=== PATIENT | female | born 1965 | race Caucasian/White ===

== ENCOUNTER 2019-08-24 08:45 | Outpatient (CLI) | payer BC, SELFPAY ==
--- NOTE | ~2019-08-24 | MR_ITS ---
EXAMINATION: MR foot LT wo con DATE: 08/24/2019 10:10 INDICATION: Posterior tibial tendinitis. TECHNIQUE: Magnetic resonance imaging (MRI) of the left ankle, mid and hindfoot was performed without intravenous contrast. Sequences included sagittal, coronal, and axial proton-density weighted fast s pin echo without and with fat saturation. COMPARISON: None. FINDINGS: Medial ankle ligaments: Deep deltoid ligament as well as the posterior superficial deltoid ligament are normal. There is thic kening of the anterior portion of the superficial deltoid ligament as well as the superomedial compon ent of the spring ligament complex without surrounding edema consistent with mild scarring related to chronic sprain. Lateral ankle ligaments: The anterior and posterior inferior tibiofibular ligaments are normal. The anterior talofibular, calc aneofibular and posterior talofibular ligaments are normal. Tendons: Achilles tendon is normal. The peroneus longus and brevis tendons are normal. The tibialis anterior a nd extensor hallucis longus and extensor digitorum longus tendons are normal. The flexor digitorum lo ngus and flexor hallucis longus tendons are normal. There is thickening and increased signal of the t ibialis posterior tendon beginning at the level of the tip of the medial malleolus. There is a small amount of fluid surrounding the tendon consistent with associated tenosynovitis. There is suggestion of a couple small ossicles residual bone fragments at the navicular insertion of the distal tibialis posterior tendon which could be enthesopathic or multipartite accessory apophyseal center. Plantar fascia: Large plantar calcaneal spur. There is moderate thickening and mild increased signal of the central c omponent of the plantar aponeurosis with without significant surrounding soft tissue edema is likely related to chronic enthesopathy. Bones/other: Although not diagnostically evaluated on nonweightbearing imaging there is suggestion of pes planus a s well as hindfoot valgus with mild lateral subluxation of the navicular with respect to the head of the talus with uncovering of the medial side of the talar articular surface. Fluid: Small talonavicular joint effusion with small amount of fluid collecting at the dorsal and medial rec ess of the joint space. Ganglion cyst arising posteriorly from the subtalar joint positioned along th e cephalad margin of the posterior calcaneus. IMPRESSION: 1. Scarring consistent with likely chronic sprain of the superomedial component of the spring ligamen t complex and the anterior portion of the superficial deltoid ligament. 2. Tibialis posterior tenosynovitis with mild tendinopathy but without discrete tear. 3. Suggestion of likely associated pes planus and hindfoot valgus. Reviewed, dictated and finalized at location A. IMPRESSION: 1. Scarring consistent with likely chronic sprain of the superomedial component of the spring ligament complex and the anterior portion of the superficial del toid ligament. 2. Tibialis posterior tenosynovitis with mild tendinopathy but without discrete tear. 3. Suggestion of likely associated pes planus and hindfoot valgus.
== END 2019-08-24 08:46 | disposition home or self-care (01) ==
LOC: ANHIMG 08:49
PROVIDERS: PCP Family Medicine; Visit Provider Podiatrist Foot & Ankle Surgery
DX: M76.822 Posterior tibial tendinitis, left leg (principal)
CPT/HCPCS: 73718

== ENCOUNTER → 2019-09-13 13:40 | Outpatient (CLI) | payer BC, SELFPAY ==
--- NOTE | ~2019-09-13 | US_ITS ---
EXAMINATION: US pelvic complete DATE: 09/13/2019 14:00 INDICATION: Evaluate IUD Comparison:10/04/2014 TECHNIQUE: Multiple transabdominal sonographic images of the pelvis performed. FINDINGS: The uterus measures 9.1 x 5.1 x 5.6 cm. Intrauterine device within the endometrium. The end ometrial complex measures 3 mm. The right ovary measures 2.9 x 1.5 x 2.2 cm and the left ovary measures 2 x 1.1 x 2.2 cm. There are small follicles in each ovary. There is no free fluid in the pelvis. There are no abnormal masses seen on either side. IMPRESSION: 1. Normal pelvic ultrasound. Reviewed, dictated and finalized at location A.
== END ==
PROVIDERS: PCP Family Medicine; Visit Provider Nurse Practitioner
DX: Z30.431 Encounter for routine checking of intrauterine contraceptive device (principal)
CPT/HCPCS: 76856

== ENCOUNTER → 2020-10-29 17:22 | Outpatient (CLI) | payer BC, SELFPAY ==
--- NOTE | ~2020-10-29 | MM_ITS ---
EXAMINATION: MM scrn lola implant BI w yoko HISTORY: Screening mammogram TECHNIQUE: Craniocaudal and mediolateral oblique 3-D tomosynthesis images with implant displacement a nd synthetic 2-D images were generated. Craniocaudal and mediolateral oblique views of the breasts wi thout implant displacement were obtained using full field digital mammography. CAD analysis was submi tted and interpreted. COMPARISON: 09/15/2018, 09/15/2017, 09/18/2016 BREAST PARENCHYMAL COMPOSITION: There are scattered areas of fibroglandular density. FINDINGS: There is no evidence of suspicious mass, calcification, or architectural distortion to sugg est malignancy in either breast. There has been no suspicious interval change. IMPRESSION: 1. No mammographic evidence of malignancy. 2. Recommend routine screening mammography in one year. BI-RADS Category 1: Negative Reviewed, dictated and finalized at location A.
== END ==
PROVIDERS: Visit Provider Obstetrics & Gynecology Gynecology
DX: Z12.31 Encounter for screening mammogram for malignant neoplasm of breast (principal)
CPT/HCPCS: 77063; 77067

== ENCOUNTER → 2022-10-02 13:34 | Outpatient (CLI) | payer BC, OTHER, SELFPAY ==
--- NOTE | ~2022-10-02 | MM_ITS ---
EXAMINATION: MM scrn lola implant BI w yoko HISTORY: Screening mammogram TECHNIQUE: Craniocaudal and mediolateral oblique 3-D tomosynthesis images with implant displacement a nd synthetic 2-D images were generated. Craniocaudal and mediolateral oblique views of the breasts wi thout implant displacement were obtained using full field digital mammography. CAD analysis was submi tted and interpreted. COMPARISON: Comparison to multiple prior studies sequentially, with oldest reviewed study dated 10/06. BREAST PARENCHYMAL COMPOSITION: There are scattered areas of fibroglandular density. FINDINGS: There is no evidence of suspicious mass, calcification, or architectural distortion to sugg est malignancy in either breast. There has been no suspicious interval change. IMPRESSION: 1. No mammographic evidence of malignancy. 2. Recommend routine screening mammography in one year. BI-RADS Category 1: Negative Reviewed, dictated and finalized at location A.
== END ==
PROVIDERS: PCP Advanced Practice Midwife; Visit Provider Advanced Practice Midwife
DX: Z12.31 Encounter for screening mammogram for malignant neoplasm of breast (principal)
CPT/HCPCS: 77063; 77067

== ENCOUNTER 2023-06-29 08:54 | Outpatient (CLI) | payer BC, OTHER, SELFPAY ==
--- NOTE | ~2023-06-29 | DEXA_ITS ---
Bone Density Report Name: VALENTINE COLMENARES Age: 57 Sex: Female Ethnicity: White Date of : 1965 Indication: screening for osteoporosis; asthma or emphysema; Referring Provider: JOSE BLOOM Study: Bone densitometry was performed. Exam Date: June 29, 2023 Accession number: [id number] Bone Density: Region BMD T-score Z-score Classification AP Spine (L1-L4) 0.984 -0.6 0.6 Normal Femoral Neck (Left) 0.857 0.1 1.2 Normal Total Hip (Left) 0.954 0.1 0.8 Normal Femoral Neck (Right) 0.832 -0.2 0.9 Normal Total Hip (Right) 0.973 0.3 1.0 Normal Total Hip Mean 0.964 0.2 0.9 Normal World Health Organization criteria for BMD impression classify patients as: Normal (T-score at or above -1.0), Osteopenia (T-score between -1.0 and -2.5), or Osteoporosis (T-score at or below -2.5). 10-year Fracture Risk: FRAX not reported because: Premenopausal woman All T-scores for Spine Total, Hip Total, Femoral Neck at or above -1.0 Previous Exams: Region Exam Age BMD T-score BMD Change BMD Change Date g/cm2 vs Baseline vs Previous AP Spine(L1-L4) 06/29/2023 57 0.984 -0.6 -0.121* -0.121* 09/15/2018 53 1.105 0.5 Total Hip(Left) 06/29/2023 57 0.954 0.1 -0.114* -0.114* 09/15/2018 53 1.068 1.0 Total Hip(Right) 06/29/2023 57 0.973 0.3 -0.088* -0.088* 09/15/2018 53 1.061 1.0 *Denotes significance at 95% confidence level, LSC for AP Spine = 0.022 g/cm2, LSC for Total Hip = 0.027 g/cm2 Clinical Information Provided by Patient: Has used the following medications: Vitamin D, MTV, IUD Has the following medical conditions: Asthma or Emphysema Patient maximum height was 61.2 Drinks caffeinated beverages Onset of menses at age 15 Premenopausal Number of children 2 Missed period for more than 6 months in a row Impression: The patient's bone mass is within expected range for age, gender and ethnicity. The BMD for the AP Spine(L1-L4) decreased, changing by -0.121 since the last DXA exam. The BMD for the Total Hip(Left) decreased, changing by -0.114 since the last DXA exam. The BMD for the Total Hip(Right) decreased, changing by -0.088 since the last DXA exam. Discussion: BONE DENSITY IS WITHIN EXPECTED LIMITS FOR AGE, SEX AND RACE. Bone density is within expected limits for age, sex and race at all sites measured. The patient should follow a healthful lifestyle (good nutrition with adequate calcium and vitamin D, and appropriate weight-bearing exercise). Follow-Up: Consider repeating this s
== END 2023-06-29 08:55 ==
LOC: MICIMG 08:55
PROVIDERS: PCP Advanced Practice Midwife; Visit Provider Advanced Practice Midwife
DX: Z78.0 Asymptomatic menopausal state (principal)
CPT/HCPCS: 77080

== ENCOUNTER 2024-09-07 10:30 | Outpatient (CLI) | payer BC, SELFPAY ==
--- NOTE | ~2024-09-07 | MM_ITS ---
EXAMINATION: MM scrn lola implant BI w yoko HISTORY: Screening mammogram TECHNIQUE: Craniocaudal and mediolateral oblique 3-D tomosynthesis images with implant displacement a nd synthetic 2-D images were generated. Craniocaudal and mediolateral oblique views of the breasts wi thout implant displacement were obtained using full field digital mammography. CAD analysis was submi tted and interpreted. COMPARISON: 10/02/2022, 10/29/2020 BREAST PARENCHYMAL COMPOSITION: There are scattered areas of fibroglandular density. FINDINGS: There is no evidence of suspicious mass, calcification, or architectural distortion to sugg est malignancy in either breast. There has been no suspicious interval change. IMPRESSION: No mammographic evidence of malignancy. Recommend routine screening mammography in one year. BI-RADS Category 1: Negative Reviewed, dictated and finalized at [facility].
== END 2024-09-07 10:31 | disposition home or self-care (01) ==
LOC: ANHIMG 10:33
PROVIDERS: PCP Physician Assistant; Visit Provider Obstetrics & Gynecology Gynecology
DX: Z12.31 Encounter for screening mammogram for malignant neoplasm of breast (principal)
CPT/HCPCS: 77063; 77067